=== PATIENT | male | born 1990 | race African-American/Black ===

== ENCOUNTER 2018-02-03 09:01 | Emergency (ER) | payer SELFPAY ==
[2018-02-03 09:21] VITALS: BP 138/59
[2018-02-03] MEDS ORDERED: RINGERS SOLUTION,LACTATED 1,000 ML IV ONE (09:23)
[2018-02-03] MEDS ORDERED: ONDANSETRON HCL INJ/PF 4 MG/2 ML SDV IV ONE (09:38)
[2018-02-03] MEDS ORDERED: KETOROLAC TROMETHAMINE INJ/PF 30 MG/1 ML SDV IV ONE (09:39)
[2018-02-03 10:32] LABS: ABSOLUTE BASOPHILS # (AUTO) 0.1 10^3/uL (0.0-0.2); ABSOLUTE LYMPHOCYTES (AUTO) 0.9 10^3/uL (0.5-4.7); ABSOLUTE MONOCYTES (AUTO) 0.6 10^3/uL (0.1-1.4); ABSOLUTE NEUT (AUTO) 11.6 10^3/uL (1.7-8.2); BASOPHILS % (AUTO) 0.4 % (0-2); EOSINOPHILS % (AUTO) 0.1 % (0-6); HEMATOCRIT 48.8 % (37.9-51.0); HEMOGLOBIN 16.6 g/dL (13.5-17.0); LYMPHOCYTES % (AUTO) 7.2 % (13-45); MEAN CORPUSCULAR HEMOGLOBIN 30.2 pg (27.0-33.4); MEAN CORPUSCULAR VOLUME 89 fl (80-97); MONOCYTES % (AUTO) 4.7 % (3-13); PLATELET COUNT 224 10^3/uL (150-450); RED CELL DISTRIBUTION WIDTH 13.8 % (11.5-14.0); SEGMENTED NEUTROPHILS % (AUTO) 87.6 % (42-78); TOTAL CELLS COUNTED % (AUTO) 100 %; WHITE BLOOD COUNT 13.2 10^3/uL (4.0-10.5)
[2018-02-03 11:05] LABS: ALANINE AMINOTRANSFERASE 56 U/L (21-72); ALBUMIN 5.5 g/dL (3.5-5.0); ALKALINE PHOSPHATASE 99 U/L (38-126); ANION GAP 18 (5-19); ASPARTATE AMINO TRANSFERASE 47 U/L (17-59); BILIRUBIN,DIRECT 0.4 mg/dL (0.0-0.4); BILIRUBIN,TOTAL 1.4 mg/dL (0.2-1.3); BLOOD UREA NITROGEN 19 mg/dL (7-20); CALCIUM 11.3 mg/dL (8.4-10.2); CARBON DIOXIDE 22 mmol/L (22-30); CHLORIDE 106 mmol/L (98-107); GLUCOSE 103 mg/dL (75-110); LIPASE 88.1 U/L (23-300); POTASSIUM 4.3 mmol/L (3.6-5.0); SODIUM 146.4 mmol/L (137-145); TOTAL PROTEIN 8.8 g/dL (6.3-8.2)
--- NOTE | 2018-02-03 11:19 | ER Document Report ---
ED General - General Chief Complaint: Nausea/Vomiting/Diarrhea Stated Complaint: VOMITING Time Seen by Provider: 02/03/18 09:23 TRAVEL OUTSIDE OF THE [place] IN LAST 30 DAYS: No - HPI Patient complains to provider of: Nausea vomiting diarrhea Notes: Patient coming in for nausea and diarrhea starting the last 24 hours. Patient denies any recent travel antibiotics new foods new pets. Patient denies any fevers chills. Patient states lower abdominal pain is very diffuse. Patient upon my evaluation is resting comfortably denies any past medical history does state he smokes marijuana recreationally nothing heavily over the last 24 hours - Related Data Allergies/Adverse Reactions: No Known Allergies Allergy (Verified 02/03/18 09:02) Past Medical History - Social History Smoking Status: Unknown if Ever Smoked Family History: Reviewed & Not Pertinent Review of Systems - Review of Systems Constitutional: No symptoms reported EENT: No symptoms reported Cardiovascular: No symptoms reported Respiratory: No symptoms reported Gastrointestinal: Diarrhea, Nausea, Vomiting Genitourinary: No symptoms reported Male Genitourinary: No symptoms reported Musculoskeletal: No symptoms reported Skin: No symptoms reported Hematologic/Lymphatic: No symptoms reported Neurological/Psychological: No symptoms reported -: Yes All other systems reviewed and negative Physical Exam - Vital signs Vitals: Pulse Resp BP Pulse Ox 51 L 17 138/59 H 100 02/03/18 09:17 02/03/18 09:17 02/03/18 09:17 02/03/18 09:17 Interpretation: Normal - General General appearance: Appears well, Alert - HEENT Head: Normocephalic, Atraumatic Eyes: Normal Pupils: PERRL - Respiratory Respiratory status: No respiratory distress Chest status: Nontender Breath sounds: Normal Chest palpation: Normal - Cardiovascular Rhythm: Regular Heart sounds: Normal auscultation Murmur: No - Abdominal Inspection: Normal Distension: No distension Bowel sounds: Normal Tenderness: Nontender Organomegaly: No organomegaly - Back Back: Normal, Nontender - Extremities General upper extremity: Normal inspection, Nontender, Normal color, Normal ROM , Normal temperature General lower extremity: Normal inspection, Nontender, Normal color, Normal ROM , Normal temperature, Normal weight bearing. No: Spencer's sign - Neurological Neuro grossly intact: Yes Cognition: Normal Orientation: AAOx4 [place] Coma Scale Eye Opening: Spontaneous [place] Coma Scale Verbal: Oriented [place] Coma Scale Motor: Obeys Commands Mair[place] Coma Scale Total: 15 Speech: Normal Motor strength normal: LUE, RUE, LLE, RLE Sensory: Normal - Psychological Associated symptoms: Normal affect, Normal mood - Skin Skin Temperature: Warm Skin Moisture: Dry Skin Color: Normal Course - Re-evaluation Re-evalutation: 02/03/18 14:36 The patient presents with nausea vomiting diarrhea without signs of peritonitis or other life-threatening or serious etiology. The patient appears stable for discharge and has been instructed to return immediately if the symptoms worsen in any way, or in 8-12hr if not improved for re-evaluation. The patient has been instructed to return if the symptoms worsen or change in any way. - Vital Signs Vital signs: Temp Pulse Resp BP Pulse Ox 97.4 F 51 L 17 138/59 H 100 02/03/18 09:45 02/03/18 09:17 02/03/18 09:17 02/03/18 09:17 02/03/18 09:17 - Laboratory Result Diagrams: 02/03/18 10:15 02/03/18 10:15 Laboratory results interpreted by me: 02/03/18 02/03/18 10:15 10:15 WBC 13.2 H Seg Neutrophils % 87.6 H Lymphocytes % 7.2 L Absolute Neutrophils 11.6 H Sodium 146.4 H Creatinine 1.32 H Calcium 11.3 H Total Bilirubin 1.4 H Total Protein 8.8 H Albumin 5.5 H Discharge - Discharge Clinical Impression: Nausea vomiting and diarrhea, Dehydration Condition: Good Disposition: HOME, SELF-CARE Instructions: Dehydration ([facility]), Gastroenteritis (adult) ([facility]), Intravenous (IV ) Fluids ([facility]) Additional Instructions: Laboratory studies does show signs of dehydration. Please make sure you are drinking plenty of fluids such as water or Gatorade. Return to ER symptoms worsen. Symptoms may continue for 48 hours up to 7 days. Return to ER symptoms worsen take medications as prescribed stick to a clear liquid diet for the next 6-12 hours then advance her diet as tolerated. Avoid dairy and greasy foods. Along with the Bentyl for your abdominal pain you may also take Tylenol and Motrin. Prescriptions: Dicyclomine HCl [Bentyl 20 mg Tablet] 20 mg PO QID #30 tablet Ondansetron [Zofran Odt] 4 mg PO Q6 PRN #30 tab.rapdis PRN Reason: For Nausea/Vomiting Promethazine HCl [Phenergan 25 mg Tablet] 25 mg PO Q6 #30 tablet Forms: Return to Work
== END 2018-02-03 11:31 | disposition home or self-care (01) ==
LOC: ER 09:01
DX: R11.2 Nausea with vomiting, unspecified (principal); R19.7 Diarrhea, unspecified; E86.0 Dehydration; R10.30 Lower abdominal pain, unspecified
CPT/HCPCS: 99284; 96361; 96374; 96375; 36415; 83690; 85025; 80053; J1885; J2405; J7120

== ENCOUNTER 2018-02-04 09:23 | Emergency (ER) | payer SELFPAY ==
--- NOTE | 2018-02-04 09:56 | ER Document Report ---
ED Medical Screen (RME) - General Chief Complaint: Nausea/Vomiting Stated Complaint: VOMITING Time Seen by Provider: 02/04/18 09:50 Notes: Patient represents to ED for lower abdominal pain more in the umbilical area and unable to keep any medications down food since yesterday. Patient has exquisite tenderness and guarding with palpation to right lower quadrant. Patient still has his appendix. I have greeted and performed a rapid initial assessment of this patient. A comprehensive ED assessment and evaluation of the patient, analysis of test results and completion of the medical decision making process will be conducted by additional ED providers. PHYSICAL EXAMINATION: GENERAL: Well-appearing, well-nourished and in mild distress. HEAD: Atraumatic, normocephalic. EYES: Pupils equal round extraocular movements intact, conjunctiva are normal. ENT: Nares patent NECK: Normal range of motion LUNGS: No respiratory distress ABD: Extreme TTP of RLQ with guarding Musculoskeletal: Normal range of motion NEUROLOGICAL: Normal speech, normal gait. PSYCH: Normal mood, normal affect. TRAVEL OUTSIDE OF THE [place] IN LAST 30 DAYS: No - Related Data Allergies/Adverse Reactions: No Known Allergies Allergy (Verified 02/03/18 09:02) Past Medical History - Social History Frequency of alcohol use: None Drug Abuse: Marijuana Renal/ Medical History: Denies: Hx Peritoneal Dialysis Physical Exam - Vital signs Vitals: Temp Pulse Resp BP Pulse Ox 97.8 F 56 L 14 112/75 100 02/04/18 09:41 02/04/18 09:41 02/04/18 09:41 02/04/18 09:41 02/04/18 09:41 Course - Vital Signs Vital signs: Temp Pulse Resp BP Pulse Ox 97.8 F 56 L 14 112/75 100 02/04/18 09:41 02/04/18 09:41 02/04/18 09:41 02/04/18 09:41 02/04/18 09:41
[2018-02-04] MEDS ORDERED: NORMAL SALINE 1000 ML 1,000 ML IV ONE ×2 (09:57→11:12)
[2018-02-04] MEDS ORDERED: ONDANSETRON HCL INJ/PF 4 MG/2 ML SDV IV ONE (09:59)
[2018-02-04] MEDS ORDERED: FENTANYL CITRATE INJ/PF 100 MCG/2 ML AMPUL IV ONE (09:59)
[2018-02-04 10:44] LABS: ABSOLUTE BASOPHILS # (AUTO) 0.1 10^3/uL (0.0-0.2); ABSOLUTE MONOCYTES (AUTO) 0.6 10^3/uL (0.1-1.4); ABSOLUTE NEUT (AUTO) 9.5 10^3/uL (1.7-8.2); BASOPHILS % (AUTO) 0.7 % (0-2); EOSINOPHILS % (AUTO) 0.1 % (0-6); HEMATOCRIT 48.9 % (37.9-51.0); HEMOGLOBIN 16.4 g/dL (13.5-17.0); LYMPHOCYTES % (AUTO) 16.5 % (13-45); MEAN CORPUSCULAR HEMOGLOBIN 30.1 pg (27.0-33.4); MEAN CORPUSCULAR HGB CONC 33.6 g/dL (32.0-36.0); MEAN CORPUSCULAR VOLUME 90 fl (80-97); PLATELET COUNT 236 10^3/uL (150-450); RED BLOOD COUNT 5.46 10^6/uL (4.35-5.55); RED CELL DISTRIBUTION WIDTH 13.8 % (11.5-14.0); SEGMENTED NEUTROPHILS % (AUTO) 77.7 % (42-78); TOTAL CELLS COUNTED % (AUTO) 100 %; WHITE BLOOD COUNT 12.2 10^3/uL (4.0-10.5)
--- NOTE | 2018-02-04 10:50 | RADIOLOGY REPORT (SQ) ---
EXAM DESCRIPTION: CT ABD/PELVIS WITH IV ONLY COMPLETED DATE/TIME: 02/04/2018 10:36 am REASON FOR STUDY: N/V, abd pain COMPARISON: None. TECHNIQUE: CT scan of the abdomen and pelvis performed using helical scanning technique with dynamic intravenous contrast injection. No oral contrast. Images reviewed with lung, soft tissue, and bone windows. Reconstructed coronal and sagittal MPR images reviewed. Delayed images for evaluation of the urinary system also acquired. All images stored on PACS. All CT scanners at this facility use dose modulation, iterative reconstruction, and/or weight based d osing when appropriate to reduce radiation dose to as low as reasonably achievable (ALARA). [facility]: Dose Right [facility]: CareDose [facility]: Dose Right [facility]: Teradose 4D [facility]: [employer] CONTRAST TYPE AND DOSE: contrast/concentration: Isovue 370.00 mg/ml; Total Contrast Delivered: 75.0 ml; Total Saline Delivered: 67.0 ml RENAL FUNCTION: None required. The patient is less than 50 years old. RADIATION DOSE: CT Rad equipment meets quality standard of care and radiation dose reduction techniq ues were employed. CTDIvol: 5.2 - 6.4 mGy. DLP: 575 mGy-cm.. LIMITATIONS: Study is limited somewhat due to the relative paucity of mesenteric and retroperitoneal fat making delineation of abdominal and pelvic structures somewhat difficult FINDINGS: LOWER CHEST: No significant findings. No nodules or infiltrates. LIVER: Normal size. No masses. No dilated ducts. SPLEEN: Normal size. No focal lesions. PANCREAS: No masses. No significant calcifications. No adjacent inflammation or peripancreatic fluid collections. Pancreatic duct not dilated. GALLBLADDER: No identified stones by CT criteria. No inflammatory changes to suggest cholecystitis. ADRENAL GLANDS: No significant masses or asymmetry. RIGHT KIDNEY AND URETER: No solid masses. No significant calcifications. No hydronephrosis or hyd roureter. LEFT KIDNEY AND URETER: No solid masses. No significant calcifications. No hydronephrosis or hydr oureter. AORTA AND VESSELS: No aneurysm. No dissection. Renal arteries, SMA, celiac without stenosis. RETROPERITONEUM: No retroperitoneal adenopathy, hemorrhage or masses. BOWEL AND PERITONEAL CAVITY: No masses or inflammatory changes. No free fluid or peritoneal masses. APPENDIX: Normal. PELVIS: No mass. No free fluid. Normal bladder. ABDOMINAL WALL: No masses. No hernias. BONES: No significant or acute findings. OTHER: No other significant finding. IMPRESSION: NO SIGNIFICANT OR ACUTE FINDING IN THE ABDOMEN OR PELVIS ON CT SCAN WITH IV CONTRAST. TECHNICAL DOCUMENTATION: JOB ID: [id number] Quality ID # [id number]: Final reports with documentation of one or more dose reduction techniques (e.g., Au tomated exposure control, adjustment of the mA and/or kV according to patient size, use of iterative reconstruction technique) 2010 [employer]- All Rights Reserved Reading location - IP/workstation name: [email or web address]
--- NOTE | 2018-02-04 10:52 | ER Document Report ---
ED GI/ - General Chief Complaint: Nausea/Vomiting Stated Complaint: VOMITING Time Seen by Provider: 02/04/18 09:50 Mode of Arrival: Ambulatory Information source: Patient Notes: Patient presents with a 3 day history of nausea and vomiting. Patient was evaluated here yesterday for the symptoms but states the symptoms worsen. Patient denies any fever. Patient states he had diarrhea yesterday although diarrhea symptoms seem to resolve today. Patient denies any urinary symptoms. TRAVEL OUTSIDE OF THE [place] IN LAST 30 DAYS: No - HPI Patient complains to provider of: Abdominal pain - Now resolved, Vomiting Onset: Other - 3 days Timing/Duration: Persistent Severity at maximum: Moderate Pain Level: Denies Sexual history: Active Associated symptoms: Nausea, Vomiting. denies: Coffee ground emesis, Fever, Urinary hesitancy, Urinary frequency, Urinary retention, Urinary urgency Exacerbated by: Denies Relieved by: Denies Similar symptoms previously: No Recently seen / treated by doctor: Yes - Related Data Allergies/Adverse Reactions: No Known Allergies Allergy (Verified 02/03/18 09:02) Past Medical History - General Information source: Patient - Social History Smoking Status: Never Smoker Frequency of alcohol use: None Drug Abuse: Marijuana Occupation: [employer] Family History: Reviewed & Not Pertinent Patient has suicidal ideation: No Patient has homicidal ideation: No - Medical History Medical History: Negative Renal/ Medical History: Denies: Hx Peritoneal Dialysis Surgical Hx: Negative Review of Systems - Review of Systems Constitutional: No symptoms reported. denies: Fever, Recent illness EENT: No symptoms reported Cardiovascular: No symptoms reported Respiratory: No symptoms reported. denies: Cough, Short of breath Gastrointestinal: Abdominal pain, Diarrhea, Nausea, Vomiting Genitourinary: No symptoms reported. denies: Dysuria, Flank pain Male Genitourinary: No symptoms reported Musculoskeletal: No symptoms reported. denies: Back pain Skin: No symptoms reported Hematologic/Lymphatic: No symptoms reported Neurological/Psychological: No symptoms reported Physical Exam - Vital signs Vitals: Temp Pulse Resp BP Pulse Ox 97.8 F 56 L 14 112/75 100 02/04/18 09:41 02/04/18 09:41 02/04/18 09:41 02/04/18 09:41 02/04/18 09:41 - General General appearance: Appears well, Alert In distress: None - HEENT Head: Normocephalic, Atraumatic Eyes: Normal Conjunctiva: Normal Nasal: Normal Mouth/Lips: Normal Pharynx: Normal Neck: Normal, Supple. No: Lymphadenopathy - Respiratory Respiratory status: No respiratory distress Chest status: Nontender Breath sounds: Normal. No: Rales, Rhonchi, Stridor, Wheezing Chest palpation: Normal - Cardiovascular Rhythm: Regular Heart sounds: S1 appreciated, S2 appreciated Murmur: No - Abdominal Inspection: Normal Distension: No distension Bowel sounds: Normal Tenderness: Nontender Organomegaly: No organomegaly - Back Back: Normal, Nontender. No: CVA tenderness - Extremities General upper extremity: Normal inspection, Nontender, Normal ROM General lower extremity: Normal inspection, Nontender, Normal ROM - Neurological Neuro grossly intact: Yes Cognition: Normal [place] Coma Scale Eye Opening: Spontaneous [place] Coma Scale Verbal: Oriented [place] Coma Scale Motor: Obeys Commands [place] Coma Scale Total: 15 - Psychological Associated symptoms: Normal affect, Normal mood - Skin Skin Temperature: Warm Skin Moisture: Dry Skin Color: Normal Course - Re-evaluation Re-evalutation: 02/04/18 10:52 Patient denies any abdominal tenderness at this time, order for pain medication canceled. 02/04/18 14:59 Abdomen soft, nontender. Patient nontoxic in appearance. No vomiting. Discussed results of patient's diagnostic tests with patient. Patient encouraged to have partner seek treatment as well. Discussed safe sex practices. 02/04/18 15:00 Patient encouraged to stop smoking marijuana - Vital Signs Vital signs: Temp Pulse Resp BP Pulse Ox 98.8 F 54 L 16 108/52 L 100 02/04/18 14:27 02/04/18 14:27 02/04/18 14:27 02/04/18 14:27 02/04/18 14:27 - Laboratory Result Diagrams: 02/04/18 09:57 02/04/18 13:46 Laboratory results interpreted by me: 02/04/18 02/04/18 02/04/18 09:57 10:00 11:33 WBC 12.2 H Absolute Neutrophils 9.5 H Chloride BUN Creatinine Total Bilirubin Direct Bilirubin Urine Protein 30 H Urine Ketones 20 H Urine Urobilinogen 2.0 H Ur Leukocyte Esterase MODERATE H Chlamydia DNA (PCR) DETECTED H N.gonorrhoeae DNA (PCR) DETECTED H 02/04/18 13:46 WBC Absolute Neutrophils Chloride 110 H BUN 23 H Creatinine 1.30 H Total Bilirubin 1.4 H Direct Bilirubin 0.5 H Urine Protein Urine Ketones Urine Urobilinogen Ur Leukocyte Esterase Chlamydia DNA (PCR) N.gonorrhoeae DNA (PCR) 02/04/18 15:00 Labs- Entire Visit 02/04/18 02/04/18 02/04/18 09:57 10:00 11:33 WBC 12.2 H RBC 5.46 Hgb 16.4 Hct 48.9 MCV 90 MCH 30.1 MCHC 33.6 RDW 13.8 Plt Count 236 Seg Neutrophils % 77.7 Lymphocytes % 16.5 Monocytes % 5.0 Eosinophils % 0.1 Basophils % 0.7 Absolute Neutrophils 9.5 H Absolute Lymphocytes 2.0 Absolute Monocytes 0.6 Absolute Eosinophils 0.0 Absolute Basophils 0.1 Sodium Potassium Chloride Carbon Dioxide Anion Gap BUN Creatinine Est GFR ( Amer) Est GFR (Non-Af Amer) Glucose Calcium Magnesium Total Bilirubin Direct Bilirubin Neonat Total Bilirubin Neonat Direct Bilirubin Neonat Indirect Bili AST ALT Alkaline Phosphatase Total Protein Albumin Lipase Urine Color YELLOW Urine Appearance SLIGHTLY-CLOUDY Urine pH 6.0 Ur Specific [place] 1.032 Urine Protein 30 H Urine Glucose (UA) NEGATIVE Urine Ketones 20 H Urine Blood NEGATIVE Urine Nitrite NEGATIVE Urine Bilirubin NEGATIVE Urine Urobilinogen 2.0 H Ur Leukocyte Esterase MODERATE H Urine WBC (Auto) 137 Urine RBC (Auto) 8 Urine Mucus (Auto) MANY Urine Ascorbic Acid NEGATIVE Chlamydia DNA (PCR) DETECTED H N.gonorrhoeae DNA (PCR) DETECTED H 02/04/18 02/04/18 12:12 13:46 WBC RBC Hgb Hct MCV MCH MCHC RDW Plt Count Seg Neutrophils % Lymphocytes % Monocytes % Eosinophils % Basophils % Absolute Neutrophils Absolute Lymphocytes Absolute Monocytes Absolute Eosinophils Absolute Basophils Sodium Cancelled 143.8 Potassium Cancelled 4.6 Chloride Cancelled 110 H Carbon Dioxide Cancelled 22 Anion Gap Cancelled 12 BUN Cancelled 23 H Creatinine Cancelled 1.30 H Est GFR ( Amer) Cancelled > 60 Est GFR (Non-Af Amer) Cancelled > 60 Glucose Cancelled 90 Calcium Cancelled 9.0 Magnesium Cancelled 2.0 Total Bilirubin Cancelled 1.4 H Direct Bilirubin Cancelled 0.5 H Neonat Total Bilirubin Cancelled Not Reportable Neonat Direct Bilirubin Cancelled Not Reportable Neonat Indirect Bili Cancelled Not Reportable AST Cancelled 46 ALT Cancelled 40 Alkaline Phosphatase Cancelled 63 Total Protein Cancelled 6.6 Albumin Cancelled 3.9 Lipase Cancelled 61.9 Urine Color Urine Appearance Urine pH Ur Specific [place] Urine Protein Urine Glucose (UA) Urine Ketones Urine Blood Urine Nitrite Urine Bilirubin Urine Urobilinogen Ur Leukocyte Esterase Urine WBC (Auto) Urine RBC (Auto) Urine Mucus (Auto) Urine Ascorbic Acid Chlamydia DNA (PCR) N.gonorrhoeae DNA (PCR) - Diagnostic Test Radiology reviewed: Reports reviewed Discharge - Discharge Clinical Impression: Nausea vomiting and diarrhea, Dehydration, Gonorrhea, Chlamydia UTI (urinary tract infection) Qualifiers: Urinary tract infection type: site unspecified Hematuria presence: without hematuria Qualified Code(s): N39.0 - Urinary tract infection, site not specified Condition: Stable Disposition: HOME, SELF-CARE Instructions: Azithromycin ([facility]), Chlamydia ([facility]), Doxycycline ([facility]), Gonorrhea ([facility]), Intravenous (IV) Fluids ([facility]), Urinary Tract Infection ([facility]), Vomiting ([facility]) Additional Instructions: Return immediately for any new or worsening symptoms Followup with your primary care provider, call tomorrow to make a followup appointment Have partner seek treatment for gonorrhea and chlamydia Safe sex practices Avoid use of marijuana Prescriptions: Doxycycline Hyclate 100 mg PO BID #20 capsule Forms: Parent Work Note, Return to Work Referrals: [facility] [Provider Group] - Follow up as needed [facility] [Provider Group] - Follow up as needed
[2018-02-04 10:56] LABS: APPEARANCE,URINE SLIGHTLY-CLOUDY; BILIRUBIN,URINE NEGATIVE (NEGATIVE); COLOR,URINE YELLOW; GLUCOSE, URINE NEGATIVE (NEGATIVE); KETONES,URINE 20 mg/dL (NEGATIVE); LEUKOCYTE ESTERASE,URINE MODERATE (NEGATIVE); NITRITE,URINE NEGATIVE (NEGATIVE); PROTEIN,URINE 30 mg/dL (NEGATIVE); URINE SPECIFIC GRAVITY 1.032
[2018-02-04] MEDS ORDERED: DIPHENHYDRAMINE HCL 50 MG/ML VIAL IV ONE (10:56)
[2018-02-04] MEDS ORDERED: CEFTRIAXONE INJ 1000 MG VIAL IV ONE (11:11)
[2018-02-04] MEDS ORDERED: KETOROLAC TROMETHAMINE INJ/PF 30 MG/1 ML SDV IV ONE (12:32)
[2018-02-04] MEDS ORDERED: DICYCLOMINE HCL 20 MG TABLET PO ONE (12:33)
[2018-02-04 13:27] LABS: CHLAM PCR DETECTED (NOT DETECT); GON PCR DETECTED (NOT DETECT)
[2018-02-04 14:14] LABS: ALBUMIN 3.9 g/dL (3.5-5.0); ANION GAP 12 (5-19); BILIRUBIN,DIRECT 0.5 mg/dL (0.0-0.4); BILIRUBIN,TOTAL 1.4 mg/dL (0.2-1.3); CARBON DIOXIDE 22 mmol/L (22-30); CHLORIDE 110 mmol/L (98-107); GLUCOSE 90 mg/dL (75-110); LIPASE 61.9 U/L (23-300); SODIUM 143.8 mmol/L (137-145); TOTAL PROTEIN 6.6 g/dL (6.3-8.2)
[2018-02-04 14:31] LABS: BLOOD UREA NITROGEN 23 mg/dL (7-20); POTASSIUM 4.6 mmol/L (3.6-5.0)
[2018-02-04 14:32] LABS: ALANINE AMINOTRANSFERASE 40 U/L (21-72); ALKALINE PHOSPHATASE 63 U/L (38-126); ASPARTATE AMINO TRANSFERASE 46 U/L (17-59)
[2018-02-04] MEDS ORDERED: AZITHROMYCIN 250 MG TABLET PO ONE (14:53)
[2018-02-04 15:25] VITALS: BP 108/52
--- NOTE | 2018-02-04 23:28 | EKG REPORT ---
SEVERITY:- ABNORMAL ECG - SINUS RHYTHM WITH SINUS ARRHYTHMIA NONSPECIFIC T ABNORMALITIES, ANT-LAT LEADS ST ELEV, PROBABLE NORMAL EARLY REPOL PATTERN BORDERLINE PROLONGED QT INTERVAL LVH BY VOLTAGE : Confirmed by: Paresh Cohen 04-Feb-2018 23:28:05
== END 2018-02-04 15:35 | disposition home or self-care (01) ==
LOC: ER 09:23
DX: E86.0 Dehydration (principal); R11.2 Nausea with vomiting, unspecified; A54.9 Gonococcal infection, unspecified; A74.9 Chlamydial infection, unspecified; N39.0 Urinary tract infection, site not specified; R19.7 Diarrhea, unspecified
CPT/HCPCS: 93005; 99284; 96361; 96375; 96365; 36415; 87086; 83690; 83735; 85025; 87088; 80053; 81001; 87491; 87591; 74177; 93010; J3490; J1200; J1885; J0696; J2405; J7030